=== PATIENT | female | born 2000 | race American Indian/Alaskan Native ===

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

== ENCOUNTER 2021-02-14 14:07 | Emergency (ER) | payer MEDICAID ==
--- NOTE | 2021-02-14 17:24 | Ultrasound Report ---
ULTRASOUND PELVIS INDICATION: vaginal foreign body post vaginal 02/10/21. TECHNIQUE: Transabdominal and Transvaginal. Duplex Color Doppler used: Yes. COMPARISON: None available FINDINGS: Uterus: Enlarged uterus Size: 13.8 cm. Endometrial complex: Thickened measuring 18 mm. Mass lesions: None. Additional findings: None. Right Ovary -- Normal. Blood flow: Normal. Cyst or mass: None. Left Ovary-- Normal. Blood flow: Normal. Cyst or mass: None. Urinary Bladder: Normal. Free Fluid: None. Additional Findings: None. IMPRESSION: 1. Thickened endometrial stripe. No sonographic evidence for retained products of conception Signer Name: Chao Laguerre MD Signed: 02/14/2021 5:20 PM Workstation Name: [email or web address] [id number]
--- NOTE | 2021-02-14 17:52 | Emergency Department Report ---
ED Female HPI - General Chief complaint: Vaginal Bleeding Stated complaint: blood clot Time Seen by Provider: 02/14/21 17:42 Source: patient Mode of arrival: Ambulatory Limitations: No Limitations - History of Present Illness Initial comments: Patient is a 20-year-old female presents emergency room with complaints of a vaginal blood clot. Patient states that she just noticed it yesterday. She reports that she went to urinate and noticed a blood clot from the vaginal canal. She states that she did not pass it in the toilet. She denies any heavy bleeding and states that she is having spotting. She states that she has intermittent lower abdominal cramping and lower back cramping but has no pain currently. Patient gave on 02/10/2021 at 40 weeks gestation vaginally without any complications. She states that her OB care is at [facility]. She denies any fever, vomiting, diarrhea, vaginal discharge, dysuria. No allergies to medications. - Related Data Previous Rx's Medication Instructions Recorded Last Taken Type Nitrofurantoin Gage/M-Cryst 100 mg PO Q12HR #14 capsule 08/25/18 Unknown Rx [Macrobid CAP] Vit-Fe Fumar-FA [ 1 tab PO QDAY #30 tablet 08/25/18 Unknown Rx Vitamin] Docusate Sodium [Colace] 100 mg PO BID PRN #60 capsule 10/22/18 Unknown Rx Ferrous Sulfate [Feosol 325 MG tab] 325 mg PO BID #60 tablet 10/22/18 1 Day Ago Rx ~02/09/21 HYDROcodone/APAP 5-325 [[place] 1 each PO Q6HR PRN #20 tablet 10/22/18 Unknown Rx 5/325] Ibuprofen [Motrin] 600 mg PO Q6H PRN #30 tablet 10/22/18 Unknown Rx Fluconazole (Nf) [Diflucan TAB] 150 mg PO ONCE #1 tablet 10/24/18 Unknown Rx Nitrofurantoin Gage/M-Cryst 100 mg PO Q12HR #14 capsule 10/24/18 Unknown Rx [Macrobid CAP] Ferrous Sulfate [Feosol 325 MG tab] 325 mg PO TID 30 Days #90 tablet 02/12/21 Unknown Rx Ibuprofen [Motrin 600 MG tab] 600 mg PO Q8H 7 Days #21 tablet 02/12/21 Unknown Rx Allergies Allergy/AdvReac Type Severity Reaction Status Date / Time No Known Allergies Allergy Verified 10/22/18 01:19 ED Review of Systems ROS: Stated complaint: blood clot Other details as noted in HPI Comment: All other systems reviewed and negative ED Past Medical Hx - Past Medical History Previous Medical History?: Yes Hx Hypertension: No Hx Congestive Heart Failure: No Hx Diabetes: No Hx Deep Vein Thrombosis: No Hx Renal Disease: No Hx Sickle Cell Disease: No Hx Seizures: No Hx Asthma: No Hx COPD: No Hx HIV: No - Social History Smoking Status: Never Smoker - Medications Home Medications: Home Medications Medication Instructions Recorded Confirmed Last Taken Type Nitrofurantoin Gage/M-Cryst 100 mg PO Q12HR #14 capsule 08/25/18 02/10/21 Unknown Rx [Macrobid CAP] Vit-Fe Fumar-FA [ 1 tab PO QDAY #30 tablet 08/25/18 02/10/21 Un known Rx Vitamin] Docusate Sodium [Colace] 100 mg PO BID PRN #60 capsule 10/22/18 02/10/21 Unknown Rx Ferrous Sulfate [Feosol 325 MG tab] 325 mg PO BID #60 tablet 10/22/18 02/10/21 1 Day Ago Rx ~02/09/21 HYDROcodone/APAP 5-325 [[place] 1 each PO Q6HR PRN #20 tablet 10/22/18 02/10/21 Unknown Rx 5/325] Ibuprofen [Motrin] 600 mg PO Q6H PRN #30 tablet 10/22/18 02/10/21 Unknown Rx Fluconazole (Nf) [Diflucan TAB] 150 mg PO ONCE #1 tablet 10/24/18 02/10/21 Unknown Rx Nitrofurantoin Gage/M-Cryst 100 mg PO Q12HR #14 capsule 10/24/18 02/10/21 Unknown Rx [Macrobid CAP] Ferrous Sulfate [Feosol 325 MG tab] 325 mg PO TID 30 Days #90 tablet 02/12/21 Unknown Rx Ibuprofen [Motrin 600 MG tab] 600 mg PO Q8H 7 Days #21 tablet 02/12/21 Unknown Rx ED Physical Exam - General Limitations: No Limitations General appearance: alert, in no apparent distress - Head Head exam: Present: atraumatic, normocephalic - Eye Eye exam: Present: normal appearance - ENT ENT exam: Present: mucous membranes moist - Respiratory Respiratory exam: Present: normal lung sounds bilaterally. Absent: respiratory distress, wheezes, rales, rhonchi, stridor, chest wall tenderness, accessory muscle use, decreased breath sounds, prolonged expiratory - Cardiovascular Cardiovascular Exam: Present: regular rate, normal rhythm, normal heart sounds. Absent: systolic murmur, diastolic murmur, rubs, gallop - GI/Abdominal GI/Abdominal exam: Present: soft, normal bowel sounds. Absent: distended, tenderness, guarding, rebound, rigid - Speculum exam: Present: other (revenue audit clerk: jen pinmaker, small amount of blood in the vaginal vault, no clots, no CMT, no adexnal ttp, cervical os appears closed, normal appearance of cervix) - Neurological Exam Neurological exam: Present: alert, oriented X3 - Psychiatric Psychiatric exam: Present: normal affect, normal mood - Skin Skin exam: Present: warm, dry, intact ED Course Vital Signs 02/14/21 02/14/21 02/14/21 14:10 19:05 19:07 Temperature 98.0 F 97.7 F Pulse Rate 91 H 68 Respiratory 16 20 Rate Blood Pressure 110/73 108/69 [Right] O2 Sat by Pulse 99 99 100 Oximetry ED Medical Decision Making - Lab Data Result diagrams: 02/14/21 18:10 Lab Results 02/14/21 Range/Units 18:10 WBC 6.8 (4.5-11.0) K/mm3 RBC 3.83 (3.65-5.03) M/mm3 Hgb 7.9 L (10.1-14.3) gm/dl Hct 25.3 L (30.3-42.9) % MCV 66 L (79-97) fl MCH 21 L (28-32) pg MCHC 31 (30-34) % RDW 22.0 H (13.2-15.2) % Plt Count 748 H (140-440) K/mm3 Lymph % (Auto) 20.9 (13.4-35.0) % Gage % (Auto) 7.9 H (0.0-7.3) % Eos % (Auto) 4.5 H (0.0-4.3) % Baso % (Auto) 0.6 (0.0-1.8) % Lymph # (Auto) 1.4 (1.2-5.4) K/mm3 Gage # (Auto) 0.5 (0.0-0.8) K/mm3 Eos # (Auto) 0.3 (0.0-0.4) K/mm3 Baso # (Auto) 0.0 (0.0-0.1) K/mm3 Seg Neutrophils % 66.1 (40.0-70.0) % Seg Neutrophils # 4.5 (1.8-7.7) K/mm3 Vital Signs 02/14/21 14:10 Temperature 98.0 F Pulse Rate 91 H Respiratory 16 Rate Blood Pressure 110/73 [Right] O2 Sat by Pulse 99 Oximetry - Radiology Data Radiology results: report reviewed Ordering Physician: BIANCA SIM Date of Service: 02/14/21 Procedure(s): US transvaginal Accession Number(s): [id number] cc: BIANCA SIM ULTRASOUND PELVIS INDICATION: vaginal foreign body post vaginal 02/10/21. TECHNIQUE: Transabdominal and Transvaginal. Duplex Color Doppler used: Yes. COMPARISON: None available FINDINGS: Uterus: Enlarged uterus Size: 13.8 cm. Endometrial complex: Thickened measuring 18 mm. Mass lesions: None. Additional findings: None. Right Ovary -- Normal. Blood flow: Normal. Cyst or mass: None. Left Ovary-- Normal. Blood flow: Normal. Cyst or mass: None. Urinary Bladder: Normal. Free Fluid: None. Additional Findings: None. IMPRESSION: 1. Thickened endometrial stripe. No sonographic evidence for retained products of conception Signer Name: Chao Laguerre MD Signed: 02/14/2021 5:20 PM Workstation Name: [id number] Transcribed By: TL Dictated By: Chao Laguerre MD Electronically Authenticated By: Chao Laguerre MD Signed Date/Time: 02/14/21 172 DD/ 16 TD/TT: - Medical Decision Making Patient is a 20-year-old female presents emergency room with complaints of a vaginal blood clot. Patient states that she just noticed it yesterday. She reports that she went to urinate and noticed a blood clot from the vaginal canal. She states that she did not pass it in the toilet. She denies any heavy bleeding and states that she is having spotting. She states that she has intermittent lower abdominal cramping and lower back cramping but has no pain currently. Patient gave on 02/10/2021 at 40 weeks gestation vaginally without any complications. She states that her OB care is at [facility]. She denies any fever, vomiting, diarrhea, vaginal discharge, dysuria. No allergies to medications. Vitals are normal. No abdominal tenderness on exam, on exam revenue audit clerk: jen pinmaker, small amount of blood in the vaginal vault, no clots, no CMT, no adexnal ttp, cervical os appears closed, normal appearance of cervix. H&H is stable and improved from previous. Patient was given ferrous sulfate by [facility], discussed the importance of taking. OB ultrasound 1. Thickened endometrial stripe. No sonographic evidence for retained products of conception. Discussed all findings with patient and the importance of [facility] follow-up. Advised patient please continue taking iron supplements that you are prescribed by your [facility] [employer]. Take a stool softener with the medication so it does not cause constipation. Increase your water intake. Follow-up with your [facility]. Return to emergency room immediately for any new or symptoms. Please continue quarantining as you were positive for COVID-19 during your . Critical care attestation.: If time is entered above; I have spent that time in minutes in the direct care of this critically ill patient, excluding procedure time. ED Disposition Clinical Impression: Vaginal bleeding Anemia Qualifiers: Anemia type: unspecified type Qualified Code(s): D64.9 - Anemia, unspecified Disposition: 01 HOME / SELF CARE / HOMELESS Is pt being admited?: No Does the pt Need Aspirin: No Condition: Stable Additional Instructions: please continue taking iron supplements that you are prescribed by your [facility] [employer]. Take a stool softener with the medication so it does not cause constipation. Increase your water intake. Follow-up with your [facility] [employer]. Return to emergency room immediately for any new or symptoms. Please continue quarantining as you were positive for COVID-19 during your . Referrals: PRIMARY CARE, [Primary Care Provider] - 3-5 Days [facility] [Provider Group] - 3-5 Days Time of Disposition: 18:50 Print Language: HEBREW
[2021-02-14 18:18] LABS: Basophils % (Auto) 0.6 % (0.0-1.8); Eosinophils # (Auto) 0.3 K/mm3 (0.0-0.4); Eosinophils % (Auto) 4.5 % (0.0-4.3); Hematocrit 25.3 % (30.3-42.9); Hemoglobin 7.9 gm/dl (10.1-14.3); Lymphocytes # (Auto) 1.4 K/mm3 (1.2-5.4); Lymphocytes % (Auto) 20.9 % (13.4-35.0); Mean Corpuscular HGB Conc 31 % (30-34); Monocytes # (Auto) 0.5 K/mm3 (0.0-0.8); Monocytes % (Auto) 7.9 % (0.0-7.3); Platelet Count 748 K/mm3 (140-440); Red Blood Count 3.83 M/mm3 (3.65-5.03)
[2021-02-14 18:23] LABS: Mean Corpuscular Volume 66 fl (79-97)
[2021-02-14 19:08] VITALS: BP 108/69
== END 2021-02-14 19:07 | disposition home or self-care (01) ==
LOC: ED 14:07
DX: N93.9 Abnormal uterine and vaginal bleeding, unspecified (principal); D64.9 Anemia, unspecified; Z79.899 Other long term (current) drug therapy
CPT/HCPCS: 36415; 76830; 76856; 85025; 99284